=== PATIENT | male | born 1995 | race Caucasian/White ===

== ENCOUNTER 2017-04-03 23:08 | Emergency (ER) | payer BC ==
[~2017-04-03] VITALS: Ht 193 cm; Wt 117.8 kg
[2017-04-03] MEDS ORDERED: SODIUM CHLORIDE 0.9% 1000ML 1,000 ML IV STA (23:10)
--- NOTE | 2017-04-03 23:22 | EMERGENCY ROOM VISIT NOTE ---
History Report prepared by Keily: Leandro Lopez Under the Supervision of: Dr. Delroy Arzate M.D. First contact with patient: 23:10 Chief Complaint: ALCOHOL OVERDOSE Stated Complaint: ALCOHOL OVERDOSE History of Present Illness The patient is a 21 year old male who presents to the Emergency Room for an alcohol overdose that happened prior to arrival. Per the police the patient was drinking alcohol, and he fell into the bushes. He then stumbled into the street , and the police found him and called the ambulance. They were going to release the patient, though they were concerned about the patient's blood pressure and hear rate. He is currently cooperative and smells of alcohol. History is limited secondary to intoxication. Source of History: police History Limited By: intoxication Onset: prior to arrival Position: other (global) Quality: other (alcohol overdose) Review of Systems See HPI for pertinent positives & negatives. A total of 10 systems reviewed and were otherwise negative. Current/Historical Medications No Active Prescriptions or Reported Meds Allergies Coded Allergies: No Known Allergies (Unverified , 04/03/17) Physical Exam Vital Signs Date Time Temp Pulse Resp B/P (MAP) Pulse Ox O2 Delivery O2 Flow Rate FiO2 04/04/17 04:32 117/61 04/04/17 04:30 97 17 92 04/04/17 04:01 114/94 04/04/17 04:00 93 13 04/04/17 03:44 123/67 04/04/17 03:32 28/ 04/04/17 03:30 93 18 04/04/17 03:23 74 04/04/17 03:01 108/75 04/04/17 03:00 74 14 92 04/04/17 02:42 73 18 112/61 92 Room Air 04/04/17 01:26 93 18 121/62 93 Room Air 04/04/17 00:34 91 18 132/68 92 Room Air 04/03/17 23:40 36.8 127 18 148/87 98 Room Air 04/03/17 23:40 99 Room Air 04/03/17 23:40 99 Room Air 04/03/17 23:18 115 Physical Exam Vital signs reviewed. General: Odor of EtOH in the breath, disheveled 21-year-old male. No signs of trauma. HEENT: Mild scleral injection bilaterally, PERRLA, neck supple, dry mucous membranes. Cardiovascular: Regular rate and rhythm, no extra sounds. Pulmonary: Clear to auscultation bilaterally, normal work of breathing. Abdomen: Soft, nontender, nondistended, positive bowel sounds. Musculoskeletal: Upper and lower extremities atraumatic, no peripheral edema Skin: Warm, dry, no rash. Atraumatic. Neurologic: Patient is currently nonverbal. Medical Decision & Procedures Laboratory Results 04/03/17 23:18 Test 04/03/17 23:18 04/03/17 23:38 Anion Gap 8.0 mmol/L (3-11) Est Creatinine Clear Calc Drug Dose 176.7 ml/min Estimated GFR () 136.4 Estimated GFR (Non- 117.6 BUN/Creatinine Ratio 8.6 (10-20) Calcium Level 8.5 mg/dl (8.5-10.1) Ethyl Alcohol mg/dL 361.0 mg/dl (0-3) Urine Color YELLOW Urine Appearance CLEAR (CLEAR) Urine pH 6.5 (4.5-7.5) Urine Specific [place] 1.010 (1.000-1.030) Urine Protein NEG (NEG) Urine Glucose (UA) NEG (NEG) Urine Ketones NEG (NEG) Urine Occult Blood NEG (NEG) Urine Nitrite NEG (NEG) Urine Bilirubin NEG (NEG) Urine Urobilinogen NEG (NEG) Urine Leukocyte Esterase NEG (NEG) Urine Opiates Screen NEG (NEG) Urine Methadone, Qualitative NEG (NEG) Urine Barbiturates NEG (NEG) Urine Phencyclidine (PCP) Level NEG (NEG) Ur Amphetamine/Methamphetamine NEG (NEG) MDMA (Ecstasy) Screen NEG (NEG) Urine Benzodiazepines Screen NEG (NEG) Urine Cocaine Metabolite NEG (NEG) Urine Marijuana (THC) NEG (NEG) Medications Administered Medications (Trade) Dose Ordered Sig/Davidson Route Start Time Stop Time Status Last Admin Dose Admin Sodium Chloride 1,000 ml @ 999 mls/hr Q1H1M STAT IV 04/03/17 23:10 04/04/17 00:10 DC 04/03/17 23:48 999 MLS/HR ED Course 2310: Past medical records reviewed. The patient was evaluated in room A9. A complete history and physical examination was performed. Medical Decision Differential diagnosis: Etiologies such as alcohol intoxication, toxicologic, infection, hypoglycemia, electrolyte abnormalities, cardiac sources, intracerebral event, neurologic, as well as others were entertained. This is a 21-year-old male who presents emergency department. The patient was found outside stumbling into the street. He was brought in by police over concerns that he cannot take care of himself. After sometime alcohol level was drawn. It was found to be 360. The patient was placed on a litter in a prone position. Aspiration precautions were taken. The patient was frequently reassessed throughout the night. After some time he did awaken. I stressed to the patient that he could be discharged if he could find a sober friend who is willing to take care of him. Blood Pressure Screening Patient's blood pressure: Elevated blood pressure Impression Primary Impression: Alcoholic intoxication Scribe Attestation The scribe's documentation has been prepared under my direction and personally reviewed by me in its entirety. I confirm that the note above accurately reflects all work, treatment, procedures, and medical decision making performed by me. Departure Information Dispostion Home / Self-Care Prescriptions No Active Prescriptions or Reported Meds Referrals No Doctor, Assigned (PCP) Patient Instructions My [facility] Problem Qualifiers Primary Impression: Alcoholic intoxication Complication of substance-induced condition: uncomplicated Qualified Codes: F10.920 - Alcohol use, unspecified with intoxication, uncomplicated
[2017-04-03 23:40] VITALS: TEMP 36.8; O2SAT 99; Ht 193 cm; Wt 117.8 kg
[2017-04-03 23:52] LABS: URINE APPEARANCE CLEAR (CLEAR); URINE BILIRUBIN NEG (NEG); URINE COLOR YELLOW; URINE NITRITE NEG (NEG); URINE PH 6.5 (4.5-7.5); UROBILINOGEN NEG (NEG)
[2017-04-03 23:54] LABS: BUN/CREATININE RATIO 8.6 (10-20); CALCIUM 8.5 mg/dl (8.5-10.1); CREATININE 0.92 mg/dl (0.60-1.40); POTASSIUM 3.6 mmol/L (3.5-5.1)
[2017-04-04] LABS: MANUAL MICROSCOPIC REQUIRED? NO; REVIEW REQ? NO
[2017-04-04 00:10] LABS: BENZODIAZEPINE, URINE NEG (NEG); COCAINE,URINE NEG (NEG); PHENCYCLIDINE, URINE NEG (NEG)
[2017-04-04 11:35] VITALS: BP 135/80; PULSE 90; O2SAT 95
== END 2017-04-04 11:36 | disposition home or self-care (01) ==
LOC: EDBD 23:08 → C.EDA 23:09
DX: F10.920 Alcohol use, unspecified with intoxication, uncomplicated (principal); Y90.8 Blood alcohol level of 240 mg/100 ml or more